=== PATIENT | female | born 1960 | race Caucasian/White ===

== ENCOUNTER 2016-12-12 19:08 | Inpatient (IN) | payer MEDICAID ==
[~2016-12-12] VITALS: Ht 157.5 cm; Wt 85.0 kg
[2016-12-12 19:10] VITALS: BP 130/64; PULSE 128; RESP 16; TEMP 103.1; O2SAT 96
[2016-12-12] MEDS ORDERED: PIPERACIL-TAZO 4.5 GM PREMIX 100 ML IV STA (21:21)
[2016-12-12] MEDS ORDERED: VANCOMYCIN INJ 1,000 MG in SODIUM CHLOR 0.9% 250 ML INJ 250 ML IV STA (21:21)
[2016-12-12] MEDS ORDERED: SODIUM CHLOR 0.9% 1000 ML INJ 1,000 ML IV ONE ×2 (21:21)
[2016-12-12] MEDS ORDERED: SODIUM CHLOR 0.9% 1000 ML INJ 400 ML IV ONE (21:21)
--- NOTE | 2016-12-12 21:29 | PD ---
HPI Chief Complaint: Skin Problem Time Seen by Provider: 21:21 Travel History International Travel<30 days: No Contact w/Intl Traveler<30days: No Traveled to known affect area: No History of Present Illness HPI Patient comes in complaining of fever and possible infected wound of her right breast. Patient reports she has surgery back in September in [facility] for cancer. Patient reports she had bilateral mastectomy. Patient she's had a wound ever since. Patient reports she has spacers in her breast. Patient states wounds have not close. Patient states she started having fevers earlier today of 104 home. Patient has not been on any chemotherapy or radiation therapy. Patient states she saw her surgeon prior to coming to [place] and was told everything was fine. Patient states she's been having a intermittent spasming pain right side of her chest without radiation. Patient states this comes and goes. Denies anything making it better or worse. Patient states she did take ibuprofen for the fever last dose around 6 PM tonight. Patient denies any chest pain, shortness of breath, headache, back or abdominal pain, loss change in bowel or bladder. Patient reports she is on Cymbalta and unknown cholesterol med. Patient states today when she sat on the toilet the wound started just draining large amount purulent drainage from her right breast. PFSH Past Medical History Cancer: Yes (BREAST CANCER) COPD: Yes (& EMPHYSEMA) Diminished Hearing: No ?: Not Tubal Ligation: Yes (1990) Past Surgical History Cholecystectomy: Yes (2013) Other Surgery: Yes (BILAT MASTECTOMY WITH SPACERS) Social History Alcohol Use: Yes ([facility]) Tobacco Use: No (USES [employer] NOW) Substance Use: No Allergies-Medications (Allergen,Severity, Reaction): Coded Allergies: No Known Allergies (Unverified , 12/12/16) Reported Meds & Prescriptions Reported Meds & Active Scripts Active Reported Cymbalta DR (Duloxetine HCl) 60 Mg Capdr 60 Mg PO DAILY Review of Systems Except as stated in HPI: all other systems reviewed are Neg Physical Exam Narrative GENERAL: Well-developed, overly nourished, in no acute distress, and non-ill appearing. SKIN: Large open wound noted right breast and goes up to the areola. There is no drainage currently. Patient's second small wound laterally and inferiorly to this. They both nontender and without crepitus. They are febrile with erythematous noted on the inferior aspect of the right breast. Patient has a healing wound noted left breast is afebrile, nontender, and without drainage or crepitus. HEAD: Atraumatic. Normocephalic. EYES: Pupils equal and round. EOMI. No scleral icterus. No injection or drainage. ENT: No nasal bleeding or discharge. Mucous membranes pink and moist. NECK: Trachea midline. Supple. No nuclear rigidity. CARDIOVASCULAR: Tachycardia rate and rhythm. No murmur appreciated. RESPIRATORY: No accessory muscle use. No respiratory distress. Clear to auscultation. Breath sounds equal bilaterally. GASTROINTESTINAL: Abdomen soft, non-tender, nondistended, and no guarding. Hepatic and splenic margins not palpable. No pulsatile mass. MUSCULOSKELETAL: No obvious deformities. No clubbing. No cyanosis. No edema. Full range of motion. NEUROLOGICAL: Awake and alert. No obvious cranial nerve deficits. Motor grossly within normal limits. Normal speech. PSYCHIATRIC: Appropriate mood and affect; insight and judgment normal. Data Data Last Documented VS Vital Signs Date Time Temp Pulse Resp B/P (MAP) Pulse Ox O2 Delivery O2 Flow Rate FiO2 12/12/16 23:00 99.6 12/12/16 21:38 113 20 99 Room Air Orders Orders Electrocardiogram (12/12/16 21:21) Complete Blood Count With Diff (12/12/16 21:21) Comprehensive Metabolic Panel (12/12/16 21:21) Prothrombin Time / Inr (Pt) (12/12/16 21:21) Act Partial Throm Time (Ptt) (12/12/16 21:21) Lactic Acid Sepsis Protocol (12/12/16 21:21) Magnesium (Mg) (12/12/16 21:21) Urinalysis - C+S If Indicated (12/12/16 21:21) Blood Culture (12/12/16 21:21) Chest, Single Ap (12/12/16 21:21) Blood Glucose (12/12/16 21:21) Ecg Monitoring (12/12/16 21:21) Iv Access Insert/Monitor (12/12/16 21:21) Oximetry (12/12/16 21:21) Oxygen Administration (12/12/16 21:21) Acetaminophen (Tylenol) (12/12/16 21:30) Piperacil-Tazo 4.5 Gm Premix (Zosyn 4.5 (12/12/16 21:21) Vancomycin Inj (Vancomycin Inj) (12/12/16 21:21) Sodium Chlor 0.9% 1000 Ml Inj (Ns 1000 M (12/12/16 21:21) Sodium Chlor 0.9% 1000 Ml Inj (Ns 1000 M (12/12/16 21:21) Sodium Chlor 0.9% 1000 Ml Inj (Ns 1000 M (12/12/16 21:21) Wound Culture And Gram Stain (12/12/16 22:01) Potassium Chloride (Kcl) (12/12/16 22:30) Admit Order (Ed Use Only) (12/12/16 23:11) Labs Laboratory Tests Test 12/12/16 21:25 12/12/16 21:30 White Blood Count 13.1 TH/MM3 Red Blood Count 4.25 MIL/MM3 Hemoglobin 11.9 GM/DL Hematocrit 35.8 % Mean Corpuscular Volume 84.3 FL Mean Corpuscular Hemoglobin 28.1 PG Mean Corpuscular Hemoglobin Concent 33.3 % Red Cell Distribution Width 13.2 % Platelet Count 216 TH/MM3 Mean Platelet Volume 8.3 FL Neutrophils (%) (Auto) 84.8 % Lymphocytes (%) (Auto) 9.7 % Monocytes (%) (Auto) 4.9 % Eosinophils (%) (Auto) 0.3 % Basophils (%) (Auto) 0.3 % Neutrophils # (Auto) 11.1 TH/MM3 Lymphocytes # (Auto) 1.3 TH/MM3 Monocytes # (Auto) 0.6 TH/MM3 Eosinophils # (Auto) 0.0 TH/MM3 Basophils # (Auto) 0.0 TH/MM3 CBC Comment DIFF FINAL Differential Comment Prothrombin Time 10.6 SEC Prothromb Time International Ratio 1.0 RATIO Activated Partial Thromboplast Time 25.4 SEC Blood Urea Nitrogen 9 MG/DL Creatinine 1.03 MG/DL Random Glucose 90 MG/DL Total Protein 6.9 GM/DL Albumin 3.7 GM/DL Calcium Level 9.2 MG/DL Magnesium Level 1.7 MG/DL Alkaline Phosphatase 75 U/L Aspartate Amino Transf (AST/SGOT) 41 U/L Alanine Aminotransferase (ALT/SGPT) 37 U/L Total Bilirubin 0.5 MG/DL Sodium Level 139 MEQ/L Potassium Level 3.3 MEQ/L Chloride Level 105 MEQ/L Carbon Dioxide Level 23.9 MEQ/L Anion Gap 10 MEQ/L Estimat Glomerular Filtration Rate 56 ML/MIN Lactic Acid Level 1.6 mmol/L Urine Color LIGHT-YELLOW Urine Turbidity CLEAR Urine pH 5.5 Urine Specific [place] 1.005 Urine Protein NEG mg/dL Urine Glucose (UA) NEG mg/dL Urine Ketones NEG mg/dL Urine Occult Blood NEG Urine Nitrite NEG Urine Bilirubin NEG Urine Urobilinogen LESS THAN 2.0 MG/DL Urine Leukocyte Esterase NEG Urine RBC LESS THAN 1 /hpf Urine WBC LESS THAN 1 /hpf Urine Squamous Epithelial Cells <1 /hpf Microscopic Urinalysis Comment CATH-CULT NOT IND MDM Medical Decision Making Medical Screen Exam Complete: Yes Emergency Medical Condition: Yes Interpretation(s) EKG reviewed by Dr. Coronado shows sinus tachycardia with a ventricular rate of 104. No STEMI. Differential Diagnosis Sepsis, wound infection, pneumonia, UTI, electrolyte abnormality, other Narrative Course Patient was seen and examined. Initial laboratory and radiological studies were ordered. IV was established and patient was placed on continuous cardiac monitoring. Patient was given 3 L IV fluid started on IV Zosyn, and IV vancomycin. Discussed all findings and plan of care with patient, who is agreeable for admission. All questions were answered Discussed patient with Dr. Coronado, who is in agreement with plan of care and disposition. This patient with hospitalist who is agreeable to admit the patient. Sepsis Criteria SIRS Criteria (2 or more): Temp > 100.9 or < 96.8, Heart rate over 90, WBC > 50847, < 4000 or > 10% bands Sepsis Criteria (SIRS+source): Infect source susp/known Physician Communication Physician Communication [id number] Waller, who is agreeable to admit the patient. Diagnosis Primary Impression: Sepsis Qualified Codes: A41.9 - Sepsis, unspecified organism Additional Impression: Wound infection Admitting Information Admitting Physician Requests: Admit Condition: Stable Syed Santana Dec 12, 2016 21:29
[2016-12-12] MEDS ORDERED: CYMB60CA PO (21:30)
[2016-12-12] MEDS ORDERED: ACETAMINOPHEN 325 MG TAB PO ONE (21:30)
[2016-12-12 21:38] VITALS: BP 119/69; PULSE 113; RESP 20; TEMP 101.9; O2SAT 99
[2016-12-12 21:47] LABS: AUTOMATED NEUTROPHIL # 11.1 TH/MM3 (1.8-7.7); BASOPHIL % 0.3 % (0.0-2.0); EOSINOPHIL % 0.3 % (0.0-4.0); HEMATOCRIT 35.8 % (35.0-46.0); HEMO FLAGS DIFF FINAL; LYMPH % 9.7 % (9.0-44.0); LYMPHOCYTE # 1.3 TH/MM3 (1.0-4.8); MEAN CELL VOLUME 84.3 FL (80.0-100.0); MEAN CORPUSCULAR HEMOGLOBIN 28.1 PG (27.0-34.0); MEAN CORPUSCULAR HGB CONC 33.3 % (32.0-36.0); MONO % 4.9 % (0.0-8.0); NEUT % 84.8 % (16.0-70.0); PLATELET COUNT 216 TH/MM3 (150-450); RED BLOOD COUNT 4.25 MIL/MM3 (4.00-5.30); RED CELL DISTRIBUTION WIDTH 13.2 % (11.6-17.2); WHITE BLOOD COUNT 13.1 TH/MM3 (4.0-11.0)
--- NOTE | 2016-12-12 21:51 | RADRPT ---
EXAM DATE/TIME: 12/12/2016 21:34 [place] COMPARISON: No previous studies available for comparison. INDICATIONS : Fever. MEDICAL HISTORY : Carcinoma, breast. SURGICAL HISTORY : Mastectomy, bilateral. ENCOUNTER: Initial ACUITY: 1 week PAIN SCORE: 0/10 LOCATION: Bilateral chest FINDINGS: A single view of the chest demonstrates the lungs to be symmetrically aerated without evidence of mas s, infiltrate or effusion. The cardiomediastinal contours are unremarkable. Osseous structures are intact. CONCLUSION: No acute disease. Abner Villagomez MD on December 12, 2016 at 21:49 Board Certified Radiologist. This report was verified electronically.
[2016-12-12 21:54] LABS: BLOOD, URINE NEG (NEG); GLUCOSE,URINE NEG (NEG); KETONE, URINE NEG (NEG); NITRITE,URINE NEG (NEG); PH, URINE 5.5 (5.0-8.5); SQUAMOUS EPITHELIAL CELL URINE <1 /hpf (0-5); URINE COLOR LIGHT-YELLOW (YELLW/STRAW)
[2016-12-12 21:56] LABS: COMMENT (UR) CATH-CULT NOT IND; CULTURE IF INDICATED CATH CULTURE NOT IND
[2016-12-12 21:57] LABS: APTT (PATIENT) 25.4 SEC (24.3-30.1); PROTHROMBIN TIME - PATIENT 10.6 SEC (9.8-11.6)
[2016-12-12 22:06] LABS: ANION GAP 10 MEQ/L (5-15); AST (GOT) 41 U/L (15-37); BICARBONATE 23.9 MEQ/L (21.0-32.0); BLOOD UREA NITROGEN 9 MG/DL (7-18); CHLORIDE 105 MEQ/L (98-107); GLOMERULAR FILTRATION RATE 56 ML/MIN (>89); MAGNESIUM 1.7 MG/DL (1.5-2.5); POTASSIUM 3.3 MEQ/L (3.5-5.1); SODIUM (NA) 139 MEQ/L (136-145)
[2016-12-12 22:12] LABS: ALKALINE PHOSPHATASE 75 U/L (45-117); ALT (GPT) 37 U/L (10-53); TOTAL BILIRUBIN ADULT 0.5 MG/DL (0.2-1.0)
[2016-12-12] MEDS ORDERED: POTASSIUM CHLORIDE 20 MEQ CONTROLLED RELEASE TAB PO ONE (22:30)
[2016-12-12 23:00] VITALS: TEMP 99.6
[2016-12-12] MEDS ORDERED: SODIUM CHLORIDE 0.9% FLUSH 10 ML FLUSH IV FLUSH PRN (23:30)
[2016-12-12] MEDS ORDERED: Vancomycin Consult Pharmacy 1 EA OTHER SCH (23:30)
[2016-12-12] MEDS ORDERED: NALOXONE HCL 0.4 MG/ML AMP IV PUSH PRN (23:30)
[2016-12-13] VITALS (11 sets, daily range): BP systolic 89–111; BP diastolic 53–72; PULSE 86–107; RESP 16–22; TEMP 98.7–102.8; O2SAT 94–98
--- NOTE | 2016-12-13 03:27 | HHI.HP ---
HPI Service [facility] Primary Care Physician Unknown Admission Diagnosis sepsis, wound infection Diagnoses: (1) Sepsis (2) Wound infection Chief Complaint: Right breast wound with excessive drainage Travel History International Travel<30 Days: No Contact w/Intl Traveler <30 Da: No Traveled to Known Affected Are: No History of Present Illness Written by Sarai Moralez, acting as scribe for Dr. Waller on 12/13/16 at 03:27. Plastic surgery following bilateral mastectomy 2 months ago (October 03, 2016) She has had a hole there on right breast/open wound for 7 weeks - had green, foul-odored drainage - plastic surgeon was notified multiple time and patient states she was told that it was "all fine"; wound got bigger and bigger; she was placed on antibiotics for it Patient was sitting on the toilet this morning and fluid started "pouring out of it" - discharge was "orangy" colored Has been off antibiotics for about 6 weeks Reports nausea with vomiting since arriving here at the hospital Denies fevers, shortness of breath, chest pain, vomiting, diarrhea, black or red stool, frequent urination. Traveled by plane here last Saturday; no unilateral extremity swelling or shortness of breath. Due to return home on Saturday. . Review of Systems Except as stated in HPI: all other systems reviewed are Neg Past Family Social History Past Medical History Breast cancer Hyperlipidemia Thyroid nodules Denies hypertension, diabetes, CAD, CHF, valvular heart disease, asthma, breathing problems, liver problems, kidney problems, DVT, PE, CVA, seizures. . Past Surgical History Breast spacer placement bilaterally with bilateral mastectomy Reported Medications Reported Meds & Active Scripts Active Reported Cymbalta DR (Duloxetine HCl) 60 Mg Capdr 60 Mg PO DAILY . Allergies: Coded Allergies: No Known Allergies (Unverified , 12/12/16) Active Ordered Medications Current Medications Acetaminophen (Tylenol) 650 mg ONCE ONCE PO Last administered on 12/12/16t 21 :38; Start 12/12/16 at 21:30; Stop 12/12/16 at 21:31; Status DC Piperacillin Sod/ Tazobactam Sod 100 ml @ 200 mls/hr ONCE STAT IV Last administered on 12/12/16 21:38; Start 12/12/16 at 21:21; Stop 12/12/16 at 21 :50; Status DC Vancomycin HCl 1000 mg/Sodium Chloride 250 ml @ 250 mls/hr ONCE STAT IV Last administered on 12/12/16 22:57; Start 12/12/16 at 21:21; Stop 12/12/16 at 22 :20; Status DC Sodium Chloride 1,000 ml @ 1,000 mls/hr Q1H ONCE IV Last administered on 12/12 21:37; Start 12/12/16 at 21:21; Stop 12/12/16 at 22:20; Status DC Sodium Chloride 1,000 ml @ 1,000 mls/hr Q1H ONCE IV Last administered on 12/12 21:38; Start 12/12/16 at 21:21; Stop 12/12/16 at 22:20; Status DC Sodium Chloride 400 ml @ 1,000 mls/hr Q24M ONCE IV Last administered on 21:38; Start 12/12/16 at 21:21; Stop 12/12/16 at 21:44; Status DC Potassium Chloride (KCl) 40 meq ONCE ONCE PO Last administered on 12/12/16 22:58; Start 12/12/16 at 22:30; Stop 12/12/16 at 22:31; Status DC Sodium Chloride (NS Flush) 2 ml UNSCH PRN IV FLUSH FLUSH AFTER USING IV ACCESS ; Start 12/12/16 at 23:30 Sodium Chloride (NS Flush) 2 ml BID IV FLUSH ; Start 12/13/16 at 09:00 Naloxone HCl (Narcan Inj) 0.4 mg UNSCH PRN IV PUSH SEE LABEL COMMENTS; Start 12/12/16 at 23:30 Pharmacy Profile Note 0 ml @ 0 mls/hr UNSCH OTHER ; Start 12/12/16 at 23:30 Piperacillin Sod/ Tazobactam Sod 100 ml @ 200 mls/hr Q6H IV ; Start 12/13/16 at 05:00 . Family History Mother with lung cancer Father with Alzheimer's, renal cell CA, and basal cell CA Niece with breast cancer . Social History Tobacco: quit smoking one year ago; uses e cigarette on occasion Alcohol: rare Illicit Drugs: denies . Physical Exam Vital Signs Vital Signs Date Time Temp Pulse Resp B/P (MAP) Pulse Ox O2 Delivery O2 Flow Rate FiO2 12/13/16 00:52 98.7 88 18 89/53 (65) 97 12/13/16 00:23 12/12/16 23:00 99.6 12/12/16 21:38 101.9 113 20 119/69 (86) 99 Room Air 12/12/16 21:38 99 Room Air 12/12/16 21:32 113 20 12/12/16 19:10 103.1 128 16 130/64 (86) 96 Room Air Physical Exam GENERAL: This is a female patient, in no apparent distress. SKIN: No rashes. Cool and dry. Left breast with healing scar inferior to nipple line with some wound separation and pink central area without exudate. Right breast wound covered with dressing. HEAD: Atraumatic. Normocephalic. EYES: No scleral icterus. No injection or drainage. ENT: Nose without bleeding, purulent drainage. NECK: Trachea midline. No JVD or lymphadenopathy. Supple, nontender, no meningeal signs. CARDIOVASCULAR: Regular rate and rhythm without murmurs, gallops, or rubs. RESPIRATORY: Clear to auscultation. Breath sounds equal bilaterally. No wheezes , rales, or rhonchi. GASTROINTESTINAL: Abdomen soft, non-tender, nondistended. No hepato-splenomegaly , or palpable masses. No guarding. MUSCULOSKELETAL: Extremities without clubbing, cyanosis, or edema. No calf tenderness. NEUROLOGICAL: Awake and alert. Motor and sensory grossly within normal limits. Normal speech. . Laboratory Laboratory Tests Test 12/12/16 21:25 12/12/16 21:30 White Blood Count 13.1 Red Blood Count 4.25 Hemoglobin 11.9 Hematocrit 35.8 Mean Corpuscular Volume 84.3 Mean Corpuscular Hemoglobin 28.1 Mean Corpuscular Hemoglobin Concent 33.3 Red Cell Distribution Width 13.2 Platelet Count 216 Mean Platelet Volume 8.3 Neutrophils (%) (Auto) 84.8 Lymphocytes (%) (Auto) 9.7 Monocytes (%) (Auto) 4.9 Eosinophils (%) (Auto) 0.3 Basophils (%) (Auto) 0.3 Neutrophils # (Auto) 11.1 Lymphocytes # (Auto) 1.3 Monocytes # (Auto) 0.6 Eosinophils # (Auto) 0.0 Basophils # (Auto) 0.0 CBC Comment DIFF FINAL Differential Comment Prothrombin Time 10.6 Prothromb Time International Ratio 1.0 Activated Partial Thromboplast Time 25.4 Blood Urea Nitrogen 9 Creatinine 1.03 Random Glucose 90 Total Protein 6.9 Albumin 3.7 Calcium Level 9.2 Magnesium Level 1.7 Alkaline Phosphatase 75 Aspartate Amino Transf (AST/SGOT) 41 Alanine Aminotransferase (ALT/SGPT) 37 Total Bilirubin 0.5 Sodium Level 139 Potassium Level 3.3 Chloride Level 105 Carbon Dioxide Level 23.9 Anion Gap 10 Estimat Glomerular Filtration Rate 56 Lactic Acid Level 1.6 Urine Color LIGHT-YELLOW Urine Turbidity CLEAR Urine pH 5.5 Urine Specific [place] 1.005 Urine Protein NEG Urine Glucose (UA) NEG Urine Ketones NEG Urine Occult Blood NEG Urine Nitrite NEG Urine Bilirubin NEG Urine Urobilinogen LESS THAN 2.0 Urine Leukocyte Esterase NEG Urine RBC LESS THAN 1 Urine WBC LESS THAN 1 Urine Squamous Epithelial Cells <1 Microscopic Urinalysis Comment CATH-CULT NOT IND Date/Time Source Procedure Growth Status 12/12/16 21:25 Blood Peripheral Aerobic Blood Culture Pending Received 12/12/16 21:25 Blood Peripheral Anaerobic Blood Culture Pending Received 12/12/16 22:10 Wound Breast Gram Stain Pending Received 12/12/16 22:10 Wound Breast Wound Culture Pending Received Result Diagram: 12/12/[id number] Imaging Last Impressions Chest X-Ray 12/12/162120 Signed Impressions: Service Date/Time: Monday, December 12, 2016 21:34 - CONCLUSION: No acute disease. Abner Villagomez MD . Caprini VTE Risk Assessment Caprini VTE Risk Assessment: Mod/High Risk (score >= 2) Caprini Risk Assessment Model Point Value = 1 Point Value = 2 Point Value = 3 Point Value = 5 Age 41-60 Minor surgery BMI > 25 kg/m2 Swollen legs Varicose veins or History of unexplained or recurrent spontaneous Oral contraceptives or hormone replacement Sepsis (< 1 month) Serious lung disease, including pneumonia (< 1 month) Abnormal pulmonary function Acute myocardial infarction Congestive heart failure (< 1 month) History of inflammatory bowel disease Medical patient at bed rest Age 61-74 Arthroscopic surgery Major open surgery (> 45 min) Laparoscopic surgery (> 45 min) Malignancy Confined to bed (> 72 hours) Immobilizing plaster cast Central venous access Age >= 75 History of VTE Family history of VTE Factor V Leiden Prothrombin [id number] Lupus anticoagulant Anticardiolipin antibodies Elevated serum homocysteine Heparin-induced thrombocytopenia Other congenital or acquired thrombophilia Stroke (< 1 month) Elective arthroplasty Hip, pelvis, or leg fracture Acute spinal cord injury (< 1 month) Prophylaxis Regimen Total Risk Factor Score Risk Level Prophylaxis Regimen 0-1 Low Early ambulation 2 Moderate Order ONE of the following: *Sequential Compression Device (SCD) *Heparin 5000 units SQ BID 3-4 Higher Order ONE of the following medications: *Heparin 5000 units SQ TID *Enoxaparin/Lovenox 40 mg SQ daily (WT < 150 kg, CrCl > 30 mL/min) *Enoxaparin/Lovenox 30 mg SQ daily (WT < 150 kg, CrCl > 10-29 mL/min) *Enoxaparin/Lovenox 30 mg SQ BID (WT < 150 kg, CrCl > 30 mL/min) AND/OR *Sequential Compression Device (SCD) 5 or more Highest Order ONE of the following medications: *Heparin 5000 units SQ TID (Preferred with Epidurals) *Enoxaparin/Lovenox 40 mg SQ daily (WT < 150 kg, CrCl > 30 mL/min) *Enoxaparin/Lovenox 30 mg SQ daily (WT < 150 kg, CrCl > 10-29 mL/min) *Enoxaparin/Lovenox 30 mg SQ BID (WT < 150 kg, CrCl > 30 mL/min) AND *Sequential Compression Device (SCD) Assessment and Plan Problem List: (1) Wound infection ICD Code: T14.8XXA - Other injury of unspecified body region, initial encounter ; L08.9 - Local infection of the skin and subcutaneous tissue, unspecified Status: Acute (2) Sepsis ICD Code: A41.9 - Sepsis, unspecified organism Status: Acute Assessment and Plan 56 y/o with bilateral mastectomy and breast spacer placement surgery for breast cancer 2 months ago who presented to ED on 12/12/16 for evaluation of extensively draining non-healing right breast wound. Sepsis Right breast wound infection - Fever - temp 103.1 on admission, WBC 13.1 with neutrophilia, tachycardia - meets sepsis criteria - Lactic acid normal at 1.6 - Antibiotics: Zosyn 4.5 grams IV q6h; Vancomycin with pharmacy consult for therapeutic monitoring and dosing - consult infectious disease - patient has breast spacers - please indicate whether these should be removed - appreciate assistance - multiple fluid boluses in ED to total 2400 ccs of NS IV Hypokalemia - potassium replaced - initial level 3.3 - recheck BMP - recheck potassium levels as indicated Depression - resume home Cymbalta - verbally ordered DVT prophylaxis - Lovenox 40 mg subq q24h - verbally ordered This note was transcribed by delvis [Sarai Moralez]. I, Dr. Naomie Waller personally performed the history, physical exam, and medical decision making; and confirmed the accuracy of the information in the transcribed note. Authenticated by Dr. Naomie Waller on 12/13/16 at 03:27. Discussed Condition With ER physician, patient, RN . Physician Certification 2 Midnight Certification Type: Admission for Inpatient Services Order for Inpatient Services The services are ordered in accordance with Medicare regulations or non- Medicare payer requirements, as applicable. In the case of services not specified as inpatient-only, they are appropriately provided as inpatient services in accordance with the 2-midnight benchmark. Estimated LOS (days): 3 days is the estimated time the patient will need to remain in the hospital, assuming treatment plan goals are met and no additional complications. Post-Hospital Plan: Home Problem Qualifiers (1) Sepsis: Qualified Codes: A41.9 - Sepsis, unspecified organism Sarai Moralez Dec 13, 2016 03:27 Naomie Waller MD Dec 14, 2016 04:58
[2016-12-13] MEDS: PIPERACIL-TAZO 4.5 GM PREMIX 100 ML IV SCH ×3 (06:30→17:20)
[2016-12-13 09:09] LABS: AUTOMATED NEUTROPHIL # 18.2 TH/MM3 (1.8-7.7); BASOPHIL % 0.1 % (0.0-2.0); EOSINOPHIL % 0.2 % (0.0-4.0); LYMPH % 5.6 % (9.0-44.0); LYMPHOCYTE # 1.2 TH/MM3 (1.0-4.8); MEAN CELL VOLUME 86.4 FL (80.0-100.0); MEAN CORPUSCULAR HEMOGLOBIN 28.4 PG (27.0-34.0); MEAN CORPUSCULAR HGB CONC 32.9 % (32.0-36.0); MONO % 5.7 % (0.0-8.0); NEUT % 88.4 % (16.0-70.0); PLATELET COUNT 193 TH/MM3 (150-450); RED BLOOD COUNT 4.05 MIL/MM3 (4.00-5.30); RED CELL DISTRIBUTION WIDTH 13.5 % (11.6-17.2); WHITE BLOOD COUNT 20.5 TH/MM3 (4.0-11.0)
[2016-12-13 09:15] LABS: HEMO FLAGS AUTO DIFF
[2016-12-13] MEDS: DULoxetine HCl DR 60 MG CAP PO SCH (09:16)
[2016-12-13] MEDS: ENOXAPARIN SODIUM 40 MG/0.4 ML SYRINGE SQ SCH (09:16)
[2016-12-13] MEDS: SODIUM CHLORIDE 0.9% FLUSH 10 ML FLUSH IV FLUSH SCH ×2 (09:16→21:00)
[2016-12-13 09:27] LABS: BICARBONATE 22.1 MEQ/L (21.0-32.0); POTASSIUM 3.6 MEQ/L (3.5-5.1)
[2016-12-13 09:49] LABS: BANDS 11 % (0-6); NEUTROPHIL # MANUAL DIFF 18.5 TH/MM3 (1.8-7.7); PLATELET ESTIMATE SMEAR NORMAL (NORMAL); PLATELET MORPHOLOGY NORMAL (NORMAL); POLYS (SEG NEUTROPHILS) 79 % (16-70); SCAN/DIFF FINAL DIFF MANUAL; WBC DIFF SAMPLE 100
[2016-12-13] MEDS ORDERED: VANCOMYCIN INJ 1,250 MG in SODIUM CHLOR 0.9% 250 ML INJ 250 ML IV SCH (10:00)
[2016-12-13] MEDS ORDERED: MAGNESIUM HYDROXIDE SUSP 30 ML CUP PO PRN (11:00)
[2016-12-13] MEDS ORDERED: LACTULOSE SYRUP 20 GM/30 ML CUP PO PRN (11:00)
[2016-12-13] MEDS ORDERED: ONDANSETRON HCL 4 MG/2 ML VIAL IV PUSH ONE (12:00)
[2016-12-13] MEDS ORDERED: PROPOFOL 200 MG/20 ML AMP IV ONE (12:00)
[2016-12-13] MEDS ORDERED: ROCURONIUM INJ 50 MG/5 ML SYRINGE IV PUSH ONE (12:00)
[2016-12-13] MEDS ORDERED: DEXAMETHASONE SOD PHOS 4 MG/ML VIAL IV ONE (12:00)
[2016-12-13] MEDS ORDERED: SUCCINYLCHOLINE CHLORIDE 100 MG/5 ML SYRINGE IV PUSH ONE (12:00)
[2016-12-13] MEDS ORDERED: LACTATED RINGER'S 1000 ML INJ 1,000 ML IV ONE (12:00)
[2016-12-13] MEDS ORDERED: LIDOCAINE HCL 1% PF 5 ML AMPULE OTHER ONE (12:00)
--- NOTE | 2016-12-13 13:55 | PD.WCN.NOT ---
Wound Consult Description: Consult received from Doctor Cox for R breast wound management/ infection Communicated with: LEIDY Smith Recommendation: Please continue with moist to dry dressings per Doctor Roland order until seen by General Surgery for possible debridement Additional Information: Patient seen on for evaluation of R breast wound management/ infection. Removed Elastoplast tape and ABD pad in place to reveal full thickness wounds to R breast The larger wound measures 3cm x 7cm x slough. Smaller wound to R breast measures ~1cm x~2.3 cm x ~0.2cm. Large wound bed presents with ~70% red granulated tissue, 10 % white tissue and ~20% yellow loosely adherent slough. Undermining is noted from 11 to 1 o'clock deepest at 1 o'clock measuring ~<8cm. Wound started to drain heavily during undermining assessment yellow/pink, cloudy drainage with a foul odor.Periwound presents with mild erythema,and induration from 3 to 5 o'clock and then from 7 to 9 o'clock. Loosely packed wound and and undermined area with moist 4x4 gauze pad, covered with dry 4x4 gauze pad and covered with ABD pad, Secured dressing with 2 pieces of 1 inch paper tape. Skin prep sprayed to skin before applying tape. Smaller wound bed to R breast presents with ~80% red non granulation tissue ~20 % white tissue. Periwound presents with induration from 2 to 4 o'clock , Wound has minimal sero-sanguinous drainage with mild odor. Cleansed wound with normal saline and applied saline moistened 2x2 gauze pad over wound bed and secured with ABD pad and 2 pieces of paper tape. Please continue dressing changes as ordered. Patient needs to be evaluated by General surgery for possible debridement .Patient tolerated dressing change procedure well. Holly De La Vega [facility] Dec 13, 2016 13:55
[2016-12-13] MEDS ORDERED: ACETAMINOPHEN 500 MG CPLT PO PRN (17:00)
--- NOTE | 2016-12-13 18:46 | PD.ID.CON ---
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 Unknown Diagnoses: History of Present Illness 56 yo F with R breast ca sp b/l mastectomy with expanders placement, no radiation in September L breast healed, R breast with a persistent draining wound below the nipple (6 o 'clock) presented to her plastim surgeon office with above complain , was told she is fine She cam e [place] from [place] and presented to [place] with worsening drainage , pain and redness of the R breast She hnow has fever up to 102.8; her WBC is getting worse up to 20 K with 11% of bands and her breast clx is + for MSSA Review of Systems Except as stated in HPI: all other systems reviewed are Neg Past Family Social History Allergies: Coded Allergies: No Known Allergies (Unverified , 12/12/16) Active Ordered Medications Medications where reviewed in EMR Antibiotics Include: pip tazo vancomycinm Physical Exam Vital Signs Vital Signs Date Time Temp Pulse Resp B/P (MAP) Pulse Ox O2 Delivery O2 Flow Rate FiO2 12/13/16 16:00 102.3 107 21 111/55 (73) 94 12/13/16 12:00 102.8 105 22 104/59 (74) 96 12/13/16 10:06 99.5 98 20 99/56 (70) 98 12/13/16 09:31 96 12/13/16 06:35 108/72 (84) 12/13/16 01:30 94 12/13/16 01:00 102/58 (73) 12/13/16 00:52 98.7 88 18 89/53 (65) 97 12/13/16 00:23 12/12/16 23:00 99.6 12/12/16 21:38 101.9 113 20 119/69 (86) 99 Room Air 12/12/16 21:38 99 Room Air 12/12/16 21:32 113 20 12/12/16 19:10 103.1 128 16 130/64 (86) 96 Room Air Physical Exam CONSTITUTIONAL/GENERAL: This is an adequately nourished patient, in no apparent distress. TUBES/LINES/DRAINS: SKIN: No jaundice, rashes, or lesions. Skin temperature appropriate. Not diaphoretic. BREASTS: L breast with nearly completely healed incisions, no edema, no ertyehema no tenderness R breast with open wound with small amount of serous drainage below the nipple + substantial edema, + ertyehema extending to the LOQ and axillae area with prominent tenderness HEAD: Atraumatic. Normocephalic. EYES: Pupils equal and round and reactive. Extraocular motions intact. No scleral icterus. No injection or drainage. Fundi not examined. ENT: Hearing grossly normal. Nose without bleeding or purulent drainage. Oral mucosae without visible erythema, exudates, masses, or lesions. NECK: Trachea midline. Supple, nontender. CARDIOVASCULAR: Regular rate and rhythm without murmurs, gallops, or rubs. No JVD. Peripheral pulses symmetric. RESPIRATORY/CHEST: Symmetric, unlabored respirations. Clear to auscultation. Breath sounds equal bilaterally. No wheezes, rales, or rhonchi. GASTROINTESTINAL: Abdomen soft, non-tender, nondistended. No hepato-splenomegaly , or palpable masses. No guarding. Bowel sounds present. GENITOURINARY: Without palpable bladder distension. MUSCULOSKELETAL: Extremities without clubbing, cyanosis, or edema. No joint tenderness or effusion noted. No calf tenderness. No mottling or clubbing. LYMPHATICS: No palpable cervical or supraclavicular adenopathy. NEUROLOGICAL: Awake and alert. Motor and sensory grossly within normal limits. Follows commands. Clear speech. Moves all extremities. PSYCHIATRIC: No obvious anxiety/depression. no apparent hallucinations or other psychotic thought process. Laboratory Laboratory Tests Test 12/12/16 21:25 12/12/16 21:30 12/13/16 07:35 White Blood Count 13.1 20.5 Red Blood Count 4.25 4.05 Hemoglobin 11.9 11.5 Hematocrit 35.8 35.0 Mean Corpuscular Volume 84.3 86.4 Mean Corpuscular Hemoglobin 28.1 28.4 Mean Corpuscular Hemoglobin Concent 33.3 32.9 Red Cell Distribution Width 13.2 13.5 Platelet Count 216 193 Mean Platelet Volume 8.3 8.6 Neutrophils (%) (Auto) 84.8 88.4 Lymphocytes (%) (Auto) 9.7 5.6 Monocytes (%) (Auto) 4.9 5.7 Eosinophils (%) (Auto) 0.3 0.2 Basophils (%) (Auto) 0.3 0.1 Neutrophils # (Auto) 11.1 18.2 Lymphocytes # (Auto) 1.3 1.2 Monocytes # (Auto) 0.6 1.2 Eosinophils # (Auto) 0.0 0.0 Basophils # (Auto) 0.0 0.0 CBC Comment DIFF FINAL AUTO DIFF Differential Comment FINAL DIFF MANUAL Prothrombin Time 10.6 Prothromb Time International Ratio 1.0 Activated Partial Thromboplast Time 25.4 Blood Urea Nitrogen 9 10 Creatinine 1.03 0.86 Random Glucose 90 99 Total Protein 6.9 Albumin 3.7 Calcium Level 9.2 8.3 Magnesium Level 1.7 Alkaline Phosphatase 75 Aspartate Amino Transf (AST/SGOT) 41 Alanine Aminotransferase (ALT/SGPT) 37 Total Bilirubin 0.5 Sodium Level 139 139 Potassium Level 3.3 3.6 Chloride Level 105 109 Carbon Dioxide Level 23.9 22.1 Anion Gap 10 8 Estimat Glomerular Filtration Rate 56 69 Lactic Acid Level 1.6 Urine Color LIGHT-YELLOW Urine Turbidity CLEAR Urine pH 5.5 Urine Specific [place] 1.005 Urine Protein NEG Urine Glucose (UA) NEG Urine Ketones NEG Urine Occult Blood NEG Urine Nitrite NEG Urine Bilirubin NEG Urine Urobilinogen LESS THAN 2.0 Urine Leukocyte Esterase NEG Urine RBC LESS THAN 1 Urine WBC LESS THAN 1 Urine Squamous Epithelial Cells <1 Microscopic Urinalysis Comment CATH-CULT NOT IND Differential Total Cells Counted 100 Neutrophils % (Manual) 79 Band Neutrophils % 11 Lymphocytes % 6 Monocytes % 4 Neutrophils # (Manual) 18.5 Platelet Estimate NORMAL Platelet Morphology Comment NORMAL Red Cell Morphology Comment NORMAL Date/Time Source Procedure Growth Status 12/12/16 21:25 Blood Peripheral Aerobic Blood Culture - Preliminary NO GROWTH IN 1 DAY Resulted 12/12/16 21:25 Blood Peripheral Anaerobic Blood Culture - Preliminary NO GROWTH IN 1 DAY Resulted 12/12/16 22:10 Wound Breast Gram Stain - Final Resulted 12/12/16 22:10 Wound Culture - Preliminary Staphylococcus Aureus Resulted Result Diagram: 12/13/1635 12/13/16734 Imaging Last Impressions Chest X-Ray 12/12/162120 Signed Impressions: Service Date/Time: Monday, December 12, 2016 21:34 - CONCLUSION: No acute disease. 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 Sepsis : fever, leukocytosis, bandemia - dc vanco zosyn - start cefaoline - fu blood clx - needs surgical treatment to source control with removal of infected bank worker Discussed Condition With RN @ b/s Niurka Greene MD Dec 13, 2016 18:46
[2016-12-13] MEDS ORDERED: ceFAZolin 2 GM PREMIX 50 ML IV SCH (20:00)
[2016-12-13] MEDS: DOCUSATE SODIUM 100 MG CAP PO SCH (21:00)
[2016-12-13] MEDS ORDERED: GENTAMICIN SULFATE 80 MG/2 ML VIAL ONE (21:42)
--- NOTE | 2016-12-13 22:09 | MB ---
cc: SHELLEYANIKALISA DATE OF CONSULTATION 12/13/16 REASON FOR CONSULTATION Right breast reconstruction infected warp picker with purulent drainage. HISTORY OF PRESENT ILLNESS This is a 56-year-old white female who is visit in [place] from [place], [place]. She was diagnosed with right breast cancer earlier in this year. Her surgery for bilateral mastectomy and immediate warp picker placement was sometime in September 2016. Approximately three weeks postoperative. she started noticing intermittent redness, swelling of the right breast. It was being seen by her plastic surgeon in [place]. She was being observed. She may have been placed on oral antibiotics. The details are not completely available right now. The patient visited [place] for the motorbike activities and yesterday started having drainage from the right breast, high fever and feeling sick. She was brought to the [facility] emergency room by her and has been admitted for slightly over 24 hours. The patient was originally referred to Dr. David Oneill as no plastic surgeon was available when she was admitted. Dr. Oneill just called me approximately an hour ago and has requested me to assume care for her. She receives her plastic surgical work done as a part of reconstruction. The patient did have a high temperature of 102 plus today in the afternoon, also her white count has gone to 20,000+ and it this increased since the admission. She has been placed on IV antibiotics with help of the infectious disease consult. The right breast has started draining profuse amount of liquid soaking the dressing through. PAST MEDICAL HISTORY Significant for the breast cancer on the right side, COPD. She is not diabetic. PAST SURGICAL HISTORY Gallbladder removal in 2013 MEDICATIONS Current medications Cymbalta at home. ALLERGIES None. SOCIAL HISTORY The patient has been a smoker for a very long time, but she has been smoking only occasionally for the past three years. No other major medical issues. PHYSICAL EXAMINATION The examination shows a 56-year-old white female in the surgical bed setting. She is comfortable not in distress, breathing normally and not appearing to be in any septic shock. She is afebrile to touch. She is alert, oriented and able to communicate well. The patient is able to also move around in the bed and ambulate out of the bed by herself. The general examination is grossly within acceptable range and as it is recorded on the chart. The local examination of the right breast shows a large opening on the lower half of the areola approximately one to 1 1/4 inch along the periphery and approximately three-quarters of an inch wide. There is a gauze packing that has been placed in the wound. When the room packing was removed, there was a profuse amount of yellow purulent discharge that came out. Approximately 25-30 mL was allowed to escape. No further packing was done. The area was gently cleaned and covered. There is as small raw area immediately under the wound as well. The upper half of the breast is slightly ___ compared to the left side. The purulent discharge is mostly odorless. There is no blood or hematoma. The fluid appeared to be more serous with a slight mucoid tendency. The left breast reconstruction seems to be otherwise stable and healing relatively well. The patient does have a nipple-areolar complex sparing mastectomy on the left with a mastopexy type of design. Her culture reports were reviewed showing MRSA growing. The sensitivity is not established yet. Again, the blood count has been 20.5 this afternoon. The current temperature recorded at 99. the highest temperature was slightly over 102 this afternoon. RECOMMENDATION The patient was advised that the prosthesis needs to be immediately removed. An operating room has been alerted and they are available tonight including anesthesia. The patient did have a small amount of solid food about an hour an a half to two hours ago which has been accepted in light of the need for surgery. The process of removal and debridement was explained in simple terms. The patient will be going back to [place] whenever she is allowed and she can resume care with her own plastic surgeon at that point. MD ARABELLA Brooks/ /9:22 PM /9:45 PM
[2016-12-13] MEDS ORDERED: DO NOT ADM ANY ANTICOAGULANT DRUGS PRN (22:30)
[2016-12-13] MEDS ORDERED: LACTATED RINGER'S 1000 ML INJ 1,000 ML IV SCH (23:00)
[2016-12-14] VITALS (8 sets, daily range): BP systolic 89–111; BP diastolic 51–64; PULSE 66–86; RESP 18–20; TEMP 97.7–98.4; O2SAT 96–99
[2016-12-14] MEDS: POVIDONE IODINE 10% SOLN 480 ML BTL SCH ×3 (05:00→21:00)
[2016-12-14] MEDS: ceFAZolin 2 GM PREMIX 50 ML IV SCH ×3 (06:07→22:05)
[2016-12-14 06:33] LABS: AUTOMATED NEUTROPHIL # 19.4 TH/MM3 (1.8-7.7); HEMATOCRIT 32.3 % (35.0-46.0); HEMO FLAGS DIFF FINAL; LYMPH % 3.9 % (9.0-44.0); LYMPHOCYTE # 0.8 TH/MM3 (1.0-4.8); MEAN CORPUSCULAR HEMOGLOBIN 27.7 PG (27.0-34.0); MEAN CORPUSCULAR HGB CONC 32.2 % (32.0-36.0); MONO % 2.9 % (0.0-8.0); NEUT % 93.2 % (16.0-70.0); PLATELET COUNT 191 TH/MM3 (150-450); RED BLOOD COUNT 3.76 MIL/MM3 (4.00-5.30); RED CELL DISTRIBUTION WIDTH 13.1 % (11.6-17.2); WHITE BLOOD COUNT 20.8 TH/MM3 (4.0-11.0)
--- NOTE | 2016-12-14 06:43 | MP ---
cc: [employer] DATE OF SURGERY 12/13/2016 PREOPERATIVE DIAGNOSIS Right breast abscess with tissue store sales consultant status post bilateral breast reconstruction. POSTOPERATIVE DIAGNOSIS Right breast abscess with tissue store sales consultant status post bilateral breast reconstruction. OPERATION Removal right breast tissue store sales consultant, debridement of the right breast pocket and thinning of the flap with tissue biopsy. SURGEON Dr. Wyatt ANESTHESIA General INDICATIONS This is a 56-year-old white female with right breast cancer, bilateral mastectomy and reconstruction with immediate tissue store sales consultant placement done in September 2016. She started having redness and swelling of the right breast intermittently approximately three weeks postop. The surgery design is an anchor design mastopexy type. Her vertical incision line in the lower areola area seems to have dehisced and there is a large amount of purulent drainage already draining out when the patient was first seen. The patient also has been febrile to 102 and blood count of 20,000+ WBCs. The removal of the store sales consultant and debridement was discussed with the patient and family and she is willing to proceed with the same. She understands that future reconstruction will have to be delayed until all the healing and infection is cleared. She may also have to decide about her left side down the line. There is a small scabbing noted at the T-junction lower part on the left breast, but otherwise the left breast seems to be healing normally. PROCEDURE The patient was brought to the operating room was given supine position. Anesthesia was started. The patient is already on IV antibiotic. Time-out was called and completed. A culture sample was taken from inside the breast pocket through the wide opening that is already present. The opening was enlarged and the breast flaps were opened along the horizontal incision lines both medially and laterally after completing the T portion. It was noted to contain additional 40-60 cc of purulent fluid that was suctioned out. The store sales consultant was removed. It was an intact [place] tissue store sales consultant. The cavity was inspected. The flap, particularly on the lateral aspect, seems to be fairly thick under the areola and the nipple-areolar complex. A portion of this flap seems to be calcified fatty necrosis type of tissue. This was thinned with scissors to make it even with the rest of the flap and remove the excess tissue and necrotic tissue as well. Since the right side is also the patient has cancer side, this tissue will be sent for pathology examination, even though it may not actually contain any cancer. Hemostasis was completed. The cavity was scrubbed for several minutes using Betadine scrub solution and the soft grafts and then it was irrigated out copiously with gentamicin containing saline solution. The cavity was packed with Betadine-soaked Ralf bandage after double-checking the hemostasis. The patient remained stable. Intraoperative blood loss less than 5 cc. No complications. MD ARABELLA Brooks/MACY /10:14 PM /6:28 AM
[2016-12-14 06:58] LABS: ALKALINE PHOSPHATASE 85 U/L (45-117); ALT (GPT) 52 U/L (10-53); ANION GAP 8 MEQ/L (5-15); AST (GOT) 25 U/L (15-37); BLOOD UREA NITROGEN 12 MG/DL (7-18); CHLORIDE 109 MEQ/L (98-107); GLOMERULAR FILTRATION RATE 55 ML/MIN (>89); POTASSIUM 3.6 MEQ/L (3.5-5.1); SODIUM (NA) 139 MEQ/L (136-145); TOTAL BILIRUBIN ADULT 0.8 MG/DL (0.2-1.0)
--- NOTE | 2016-12-14 07:35 | EKG ---
Date Performed: 12/12/2016 Time Performed: 21:51:37 PTAGE: 56 years EKG: SINUS TACHYCARDIA MINIMAL ST DEPRESSION CANNOT EXCLUDE ISCHEMIA ABNORMAL RHYTHM ECG NO PREVIOUS TRACING DOCTOR: Juancarlos Valencia Interpretating Date/Time 12/14/2016 07:33:37
--- NOTE | 2016-12-14 08:38 | HHI.PR ---
Subjective Remarks seen with at bedside, minimal pain low grade fever overnight, no chills here visiting from [place] Objective Vitals Vital Signs Date Time Temp Pulse Resp B/P (MAP) Pulse Ox O2 Delivery O2 Flow Rate FiO2 12/14/16 08:09 98.0 66 20 95/54 (68) 98 12/14/16 05:11 98.0 77 18 89/53 (65) 99 12/14/16 00:01 98.4 86 18 91/52 (65) 97 12/13/16 23:00 98.3 85 18 98/55 (69) 99 Nasal Cannula 2 12/13/16 22:45 86 18 99/56 (70) 99 Nasal Cannula 2 12/13/16 22:30 100 16 100/56 (71) 94 Nasal Cannula 3 12/13/16 22:30 86 12/13/16 22:18 98.7 102 16 102/58 (73) 93 Nasal Cannula 3 12/13/16 20:29 99.7 87 16 94/54 (67) 96 12/13/16 18:48 99.5 12/13/16 16:00 102.3 107 21 111/55 (73) 94 12/13/16 12:00 102.8 105 22 104/59 (74) 96 12/13/16 10:06 99.5 98 20 99/56 (70) 98 12/13/16 09:31 96 I/O 12/13/16 12/13/16 12/13/16 12/14/16 12/14/16 12/14/16 07:00 15:00 23:00 07:00 15:00 23:00 Intake Total 240 ml 500 ml Output Total 20 ml Balance 240 ml 480 ml Intake Oral 240 ml IV Total 100 ml Other 400 ml Output Estimated Blood Loss 20 ml # Voids 4 # Bowel Movements 0 Result Diagram: 12/14/1643 12/14/1643 Imaging Last Impressions Chest X-Ray 12/12/162120 Signed Impressions: Service Date/Time: Monday, December 12, 2016 21:34 - CONCLUSION: No acute disease. Abner Villagomez MD Objective Remarks awake and alert, NAD anicteric lungs clear regular rhythm right chest wall/breast- - open wound- edges clean, no necrotic tissue, no foul odor extremities no edema Procedures 12/13- removal of right breast cost manager, debridement A/P Problem List: (1) Wound infection ICD Code: T14.8XXA - Other injury of unspecified body region, initial encounter ; L08.9 - Local infection of the skin and subcutaneous tissue, unspecified Status: Acute (2) Sepsis ICD Code: A41.9 - Sepsis, unspecified organism Status: Acute Assessment and Plan 56 y/o with bilateral mastectomy and breast spacer placement surgery for breast cancer 2 months ago who presented to ED on 12/12/16 for evaluation of extensively draining non-healing right breast wound. Sepsis secondary Right breast wound infection/abscess S/P removal of breast cost manager and debridement 12/13- S aureus - T down, WBC 20,000. recheck CBC in am - Lactic acid normal at 1.6 - ID ff along with us- started on Cefazolin 2 gm IV a 8 - ff culture and sensitivity - dressing changes as ordered by Dr. Wyatt- Plastics ff Hypokalemia- corrected - potassium replaced - initial level 3.3 - ff BMP Depression - on Cymbalta- with good support DVT prophylaxis - Lovenox 40 mg subq q24h Incentive spirometry- hourly Increase activity- out of bed Problem Qualifiers (1) Sepsis: Qualified Codes: A41.9 - Sepsis, unspecified organism Parveen Decker MD Dec 14, 2016 08:38
[2016-12-14] MEDS: DOCUSATE SODIUM 100 MG CAP PO SCH ×2 (08:42→22:05)
[2016-12-14] MEDS: DULoxetine HCl DR 60 MG CAP PO SCH (08:42)
[2016-12-14] MEDS: ENOXAPARIN SODIUM 40 MG/0.4 ML SYRINGE SQ SCH (08:43)
[2016-12-14] MEDS: SODIUM CHLORIDE 0.9% FLUSH 10 ML FLUSH IV FLUSH SCH ×2 (09:08→22:05)
[2016-12-14] MEDS ORDERED: MORPHINE SULFATE 2 MG/ML INJ IV PUSH PRN (09:15)
[2016-12-14] MEDS ORDERED: PHARMACY ORDERED LAB ONE (09:45)
--- NOTE | 2016-12-14 15:54 | PD.PLAS.PN ---
Subjective Remarks Patient feeling much better, happy Afebrile Dressing was changed this am, no active bleeding reported Discussed the small open area on the left side T junction, patient is aware of it To keep the left side covered and protected. She can get in touch with her Plastic surgeon in [place] Will give her a copy of the micro to take it with her She may be able to get the wounds closed over a VIRIDIANA drain in a few days Also the path report sent last night may be ready by Mon or Sat - I will try to contact them when I receive it. They have a flight back to [place] Saturday am early OK to discharge from my standpoint tomorrow evening. Discussed future recon options - she can continue with her plastic surgeon. She also will need to continue with some form of ID coverage. Vital Signs Date Time Temp Pulse Resp B/P (MAP) Pulse Ox O2 Delivery O2 Flow Rate FiO2 12/14/16 13:15 98 12/14/16 12:29 98.0 66 20 92/51 (65) 98 12/14/16 09:36 78 12/14/16 08:09 98.0 66 20 95/54 (68) 98 12/14/16 05:11 98.0 77 18 89/53 (65) 99 12/14/16 00:01 98.4 86 18 91/52 (65) 97 12/13/16 23:00 98.3 85 18 98/55 (69) 99 Nasal Cannula 2 12/13/16 22:45 86 18 99/56 (70) 99 Nasal Cannula 2 12/13/16 22:30 100 16 100/56 (71) 94 Nasal Cannula 3 12/13/16 22:30 86 12/13/16 22:18 98.7 102 16 102/58 (73) 93 Nasal Cannula 3 12/13/16 20:29 99.7 87 16 94/54 (67) 96 12/13/16 18:48 99.5 12/13/16 16:00 102.3 107 21 111/55 (73) 94 I/O 12/13/16 12/13/16 12/13/16 12/14/16 12/14/16 12/14/16 07:00 15:00 23:00 07:00 15:00 23:00 Intake Total 240 ml 500 ml 1426 ml Output Total 20 ml Balance 240 ml 480 ml 1426 ml Intake Oral 240 ml IV Total 100 ml 1426 ml Other 400 ml Output Estimated Blood Loss 20 ml # Voids 4 # Bowel Movements 0 Laboratory Tests Test 12/14/16 05:43 White Blood Count 20.8 Red Blood Count 3.76 Hemoglobin 10.4 Hematocrit 32.3 Mean Corpuscular Volume 86.0 Mean Corpuscular Hemoglobin 27.7 Mean Corpuscular Hemoglobin Concent 32.2 Red Cell Distribution Width 13.1 Platelet Count 191 Mean Platelet Volume 8.6 Neutrophils (%) (Auto) 93.2 Lymphocytes (%) (Auto) 3.9 Monocytes (%) (Auto) 2.9 Eosinophils (%) (Auto) 0.0 Basophils (%) (Auto) 0.0 Neutrophils # (Auto) 19.4 Lymphocytes # (Auto) 0.8 Monocytes # (Auto) 0.6 Eosinophils # (Auto) 0.0 Basophils # (Auto) 0.0 CBC Comment DIFF FINAL Differential Comment Blood Urea Nitrogen 12 Creatinine 1.04 Random Glucose 147 Total Protein 6.0 Albumin 2.6 Calcium Level 8.2 Alkaline Phosphatase 85 Aspartate Amino Transf (AST/SGOT) 25 Alanine Aminotransferase (ALT/SGPT) 52 Total Bilirubin 0.8 Sodium Level 139 Potassium Level 3.6 Chloride Level 109 Carbon Dioxide Level 22.0 Anion Gap 8 Estimat Glomerular Filtration Rate 55 Date/Time Source Procedure Growth Status 12/12/16 21:25 Blood Peripheral Aerobic Blood Culture - Preliminary NO GROWTH IN 2 DAYS Resulted 12/12/16 21:25 Blood Peripheral Anaerobic Blood Culture - Preliminary NO GROWTH IN 2 DAYS Resulted 12/14/16 00:00 Abscess Breast Fungal Smear - Final NO FUNGAL ELEMENTS SEEN. Resulted 12/14/16 00:00 Abscess Breast Fungal Culture Pending Resulted Result Diagram: 12/14/16 0543 12/14/16 0543 Arik Wyatt MD Dec 14, 2016 15:54
[2016-12-15 00:45] VITALS: BP 95/53; PULSE 73; RESP 18; TEMP 97.8; O2SAT 96
[2016-12-15 04:13] VITALS: BP 150/97; PULSE 16; RESP 16; TEMP 98
[2016-12-15] MEDS: ceFAZolin 2 GM PREMIX 50 ML IV SCH ×2 (06:18→15:10)
[2016-12-15 06:50] VITALS: BP 90/56
[2016-12-15 07:08] LABS: AUTOMATED NEUTROPHIL # 12.7 TH/MM3 (1.8-7.7); BASOPHIL % 0.1 % (0.0-2.0); EOSINOPHIL # 0.1 TH/MM3 (0-0.4); HEMATOCRIT 27.6 % (35.0-46.0); HEMO FLAGS DIFF FINAL; LYMPH % 11.8 % (9.0-44.0); LYMPHOCYTE # 1.8 TH/MM3 (1.0-4.8); MEAN CELL VOLUME 84.7 FL (80.0-100.0); MEAN CORPUSCULAR HEMOGLOBIN 27.8 PG (27.0-34.0); MEAN CORPUSCULAR HGB CONC 32.8 % (32.0-36.0); MONO % 4.2 % (0.0-8.0); NEUT % 82.9 % (16.0-70.0); PLATELET COUNT 171 TH/MM3 (150-450); RED BLOOD COUNT 3.26 MIL/MM3 (4.00-5.30); RED CELL DISTRIBUTION WIDTH 13.4 % (11.6-17.2); WHITE BLOOD COUNT 15.3 TH/MM3 (4.0-11.0)
[2016-12-15 07:37] LABS: BICARBONATE 25.4 MEQ/L (21.0-32.0); POTASSIUM 3.4 MEQ/L (3.5-5.1)
[2016-12-15 08:00] VITALS: BP 100/58; PULSE 67; RESP 18; TEMP 98; O2SAT 98
[2016-12-15] MEDS: DOCUSATE SODIUM 100 MG CAP PO SCH (08:51)
[2016-12-15] MEDS: SODIUM CHLORIDE 0.9% FLUSH 10 ML FLUSH IV FLUSH SCH (08:52)
[2016-12-15] MEDS: DULoxetine HCl DR 60 MG CAP PO SCH (08:52)
[2016-12-15] MEDS: ENOXAPARIN SODIUM 40 MG/0.4 ML SYRINGE SQ SCH (08:52)
[2016-12-15 10:15] VITALS: O2SAT 98
--- NOTE | 2016-12-15 11:30 | HHI.PR ---
Subjective Remarks no complains no fever or chills Objective Vitals Vital Signs Date Time Temp Pulse Resp B/P (MAP) Pulse Ox O2 Delivery O2 Flow Rate FiO2 12/15/16 08:00 98.0 67 18 100/58 (72) 98 12/15/16 06:50 90/56 (67) 12/15/16 04:13 98.0 16 16 150/97 (114) 12/15/16 00:45 97.8 73 18 95/53 (67) 96 12/14/16 20:53 98.2 79 18 111/64 (80) 96 12/14/16 16:46 97.7 77 20 97/58 (71) 98 12/14/16 13:15 98 12/14/16 12:29 98.0 66 20 92/51 (65) 98 I/O 12/14/16 12/14/16 12/14/16 12/15/16 12/15/16 12/15/16 07:00 15:00 23:00 07:00 15:00 23:00 Intake Total 1426 ml 1010 ml 50 ml Balance 1426 ml 1010 ml 50 ml Intake Oral 960 ml IV Total 1426 ml 50 ml 50 ml # Voids 4 2 # Bowel Movements 0 Result Diagram: 12/15/1659912/15/16599 Imaging Last Impressions Chest X-Ray 12/12/162120 Signed Impressions: Service Date/Time: Monday, December 12, 2016 21:34 - CONCLUSION: No acute disease. Abner Villagomez MD Objective Remarks awake and alert, NAD anicteric lungs clear regular rhythm right chest wall/breast- - open wound- edges clean, no necrotic tissue, no foul odor extremities no edema Procedures 12/13- removal of right breast reimbursement spec, debridement A/P Problem List: (1) Wound infection ICD Code: T14.8XXA - Other injury of unspecified body region, initial encounter ; L08.9 - Local infection of the skin and subcutaneous tissue, unspecified Status: Acute (2) Sepsis ICD Code: A41.9 - Sepsis, unspecified organism Status: Acute Assessment and Plan 56 y/o with bilateral mastectomy and breast spacer placement surgery for breast cancer 2 months ago who presented to ED on 12/12/16 for evaluation of extensively draining non-healing right breast wound. Sepsis secondary Right breast wound infection/abscess S/P removal of breast reimbursement spec and debridement 12/13- MSSA - T down, WBC trended down . - Lactic acid normal at 1.6 - ID ff along with us- started on Cefazolin 2 gm IV a 8 - dressing changes as ordered by Dr. Wyatt- Plastics ff Hypokalemia-replace Depression - on Cymbalta- with good support DVT prophylaxis - Lovenox 40 mg subq q24h Incentive spirometry- hourly Increase activity- out of bed plan - patient flying out tomorrow at 6 am will d/w ID re: po antibiotics she has a ff up with her MD there Problem Qualifiers (1) Sepsis: Qualified Codes: A41.9 - Sepsis, unspecified organism Parveen Decker MD Dec 15, 2016 11:30
[2016-12-15 12:00] VITALS: BP 110/62; PULSE 60; RESP 18; TEMP 98.1; O2SAT 97
[2016-12-15] MEDS ORDERED: POTASSIUM CHLORIDE 10 MEQ CONTROLLED RELEASE TAB PO ONE (12:15)
[2016-12-15] MEDS ORDERED: CEPH-460 PO (13:49)
--- NOTE | 2016-12-15 13:53 | HHI.IDPN ---
Subjective Subjective Remarks doing good sp I+D , prosthesis removal pt noted marked improvement of the pain p sx MSSA in wound clx BC neg afebrile WBC down o/w feeling ok Allergies: Coded Allergies: No Known Allergies (Unverified , 12/12/16) Objective . Vital Signs Date Time Temp Pulse Resp B/P (MAP) Pulse Ox O2 Delivery O2 Flow Rate FiO2 12/15/16 12:00 98.1 60 18 110/62 (78) 97 12/15/16 10:15 98 21 12/15/16 08:00 98.0 67 18 100/58 (72) 98 12/15/16 06:50 90/56 (67) 12/15/16 04:13 98.0 16 16 150/97 (114) 12/15/16 00:45 97.8 73 18 95/53 (67) 96 12/14/16 20:53 98.2 79 18 111/64 (80) 96 12/14/16 16:46 97.7 77 20 97/58 (71) 98 . Laboratory Tests Test 12/14/16 05:43 12/15/16 06:00 White Blood Count 20.8 TH/MM3 15.3 TH/MM3 Red Blood Count 3.76 MIL/MM3 3.26 MIL/MM3 Hemoglobin 10.4 GM/DL 9.1 GM/DL Hematocrit 32.3 % 27.6 % Mean Corpuscular Volume 86.0 FL 84.7 FL Mean Corpuscular Hemoglobin 27.7 PG 27.8 PG Mean Corpuscular Hemoglobin Concent 32.2 % 32.8 % Red Cell Distribution Width 13.1 % 13.4 % Platelet Count 191 TH/MM3 171 TH/MM3 Mean Platelet Volume 8.6 FL 9.2 FL Neutrophils (%) (Auto) 93.2 % 82.9 % Lymphocytes (%) (Auto) 3.9 % 11.8 % Monocytes (%) (Auto) 2.9 % 4.2 % Eosinophils (%) (Auto) 0.0 % 1.0 % Basophils (%) (Auto) 0.0 % 0.1 % Neutrophils # (Auto) 19.4 TH/MM3 12.7 TH/MM3 Lymphocytes # (Auto) 0.8 TH/MM3 1.8 TH/MM3 Monocytes # (Auto) 0.6 TH/MM3 0.6 TH/MM3 Eosinophils # (Auto) 0.0 TH/MM3 0.1 TH/MM3 Basophils # (Auto) 0.0 TH/MM3 0.0 TH/MM3 CBC Comment DIFF FINAL DIFF FINAL Differential Comment Laboratory Tests Test 12/14/16 05:43 12/15/16 06:00 Blood Urea Nitrogen 12 MG/DL 14 MG/DL Creatinine 1.04 MG/DL 0.79 MG/DL Random Glucose 147 MG/DL 114 MG/DL Total Protein 6.0 GM/DL Albumin 2.6 GM/DL Calcium Level 8.2 MG/DL 8.2 MG/DL Alkaline Phosphatase 85 U/L Aspartate Amino Transf (AST/SGOT) 25 U/L Alanine Aminotransferase (ALT/SGPT) 52 U/L Total Bilirubin 0.8 MG/DL Sodium Level 139 MEQ/L 141 MEQ/L Potassium Level 3.6 MEQ/L 3.4 MEQ/L Chloride Level 109 MEQ/L 110 MEQ/L Carbon Dioxide Level 22.0 MEQ/L 25.4 MEQ/L Anion Gap 8 MEQ/L 6 MEQ/L Estimat Glomerular Filtration Rate 55 ML/MIN 76 ML/MIN Microbiology Date/Time Source Procedure Growth Status 12/12/16 21:25 Blood Peripheral Aerobic Blood Culture - Preliminary NO GROWTH IN 3 DAYS Resulted 12/12/16 21:25 Blood Peripheral Anaerobic Blood Culture - Preliminary NO GROWTH IN 3 DAYS Resulted 12/12/16 21:20 Blood Peripheral Aerobic Blood Culture - Preliminary NO GROWTH IN 3 DAYS Resulted 12/12/16 21:20 Blood Peripheral Anaerobic Blood Culture - Preliminary NO GROWTH IN 3 DAYS Resulted 12/14/16 00:00 Abscess Breast Fungal Smear - Final NO FUNGAL ELEMENTS SEEN. Resulted 12/14/16 00:00 Abscess Breast Fungal Culture Pending Resulted 12/14/16 00:00 Abscess Breast Acid Fast Stain - Final NO ACID FAST BACILLI SEEN Resulted 12/14/16 00:00 Abscess Breast Mycobacterial Culture Pending Resulted 12/14/16 00:00 Abscess Breast Gram Stain - Final Resulted 12/14/16 00:00 Wound Culture - Preliminary Staphylococcus Aureus Resulted 12/12/16 22:10 Wound Breast Gram Stain - Final Complete 12/12/16 22:10 Wound Culture - Final Staphylococcus Aureus Complete Physical Exam CONSTITUTIONAL/GENERAL: This is an adequately nourished patient, in no apparent distress. SKIN: No jaundice, rashes, or lesions. Skin temperature appropriate. Not diaphoretic. BREASTS: L breast with dressing in place min serosang staining RESPIRATORY/CHEST: unlabored respirations. NEUROLOGICAL: Awake and alert. non focal Assessment & Plan Remarks L breast wire bender hand infection, MSSA, sp I+D and removal of infeted wire bender hand ? Sepsis : fever, leukocytosis, bandemia: clinically resolved - dc pt home with f/u with her plastic surgeon in [place] - [facility] x 10 days, scrip written Discussed Condition With RN pt and @ b/s Niurka Greene MD Dec 15, 2016 13:53
--- NOTE | 2016-12-15 14:12 | HHI.DS ---
Discharge Summary Admission Date Dec 12, 2016 at 23:12 Discharge Date: Dec 15, 2016 Admitting Diagnosis sepsis, wound infection (1) Wound infection ICD Code: T14.8XXA - Other injury of unspecified body region, initial encounter ; L08.9 - Local infection of the skin and subcutaneous tissue, unspecified Status: Acute (2) Sepsis ICD Code: A41.9 - Sepsis, unspecified organism Status: Acute Procedures 12/13- removal of right breast aquatic facility manager, debridement Brief History - From Admission Written by Sarai Moralez, acting as scribe for Dr. Waller on 12/13/16 at 03:27. Plastic surgery following bilateral mastectomy 2 months ago (October 03, 2016) She has had a hole there on right breast/open wound for 7 weeks - had green, foul-odored drainage - plastic surgeon was notified multiple time and patient states she was told that it was "all fine"; wound got bigger and bigger; she was placed on antibiotics for it Patient was sitting on the toilet this morning and fluid started "pouring out of it" - discharge was "orangy" colored Has been off antibiotics for about 6 weeks Reports nausea with vomiting since arriving here at the hospital Denies fevers, shortness of breath, chest pain, vomiting, diarrhea, black or red stool, frequent urination. Traveled by plane here last Saturday; no unilateral extremity swelling or shortness of breath. Due to return home on Saturday. . CBC/BMP: 12/15/16 0600 12/15/16 0600 Significant Findings Laboratory Tests Test 12/12/16 21:25 12/12/16 21:30 12/13/16 07:35 12/14/16 05:43 White Blood Count 13.1 TH/MM3 (4.0-11.0) 20.5 TH/MM3 (4.0-11.0) 20.8 TH/MM3 (4.0-11.0) Neutrophils (%) (Auto) 84.8 % (16.0-70.0) 88.4 % (16.0-70.0) 93.2 % (16.0-70.0) Neutrophils # (Auto) 11.1 TH/MM3 (1.8-7.7) 18.2 TH/MM3 (1.8-7.7) 19.4 TH/MM3 (1.8-7.7) Creatinine 1.03 MG/DL (0.50-1.00) 1.04 MG/DL (0.50-1.00) Aspartate Amino Transf (AST/SGOT) 41 U/L (15-37) Potassium Level 3.3 MEQ/L (3.5-5.1) Estimat Glomerular Filtration Rate 56 ML/MIN (>89) 69 ML/MIN (>89) 55 ML/MIN (>89) Hemoglobin 11.5 GM/DL (11.6-15.3) 10.4 GM/DL (11.6-15.3) Lymphocytes (%) (Auto) 5.6 % (9.0-44.0) 3.9 % (9.0-44.0) Monocytes # (Auto) 1.2 TH/MM3 (0-0.9) Neutrophils % (Manual) 79 % (16-70) Band Neutrophils % 11 % (0-6) Lymphocytes % 6 % (9-44) Neutrophils # (Manual) 18.5 TH/MM3 (1.8-7.7) Calcium Level 8.3 MG/DL (8.5-10.1) 8.2 MG/DL (8.5-10.1) Chloride Level 109 MEQ/L (98-107) 109 MEQ/L (98-107) Red Blood Count 3.76 MIL/MM3 (4.00-5.30) Hematocrit 32.3 % (35.0-46.0) Lymphocytes # (Auto) 0.8 TH/MM3 (1.0-4.8) Random Glucose 147 MG/DL (74-106) Total Protein 6.0 GM/DL (6.4-8.2) Albumin 2.6 GM/DL (3.4-5.0) Test 12/15/16 06:00 White Blood Count 15.3 TH/MM3 (4.0-11.0) Red Blood Count 3.26 MIL/MM3 (4.00-5.30) Hemoglobin 9.1 GM/DL (11.6-15.3) Hematocrit 27.6 % (35.0-46.0) Neutrophils (%) (Auto) 82.9 % (16.0-70.0) Neutrophils # (Auto) 12.7 TH/MM3 (1.8-7.7) Random Glucose 114 MG/DL (74-106) Calcium Level 8.2 MG/DL (8.5-10.1) Potassium Level 3.4 MEQ/L (3.5-5.1) Chloride Level 110 MEQ/L (98-107) Estimat Glomerular Filtration Rate 76 ML/MIN (>89) Imaging Last Impressions Chest X-Ray 12/12/162120 Signed Impressions: Service Date/Time: Monday, December 12, 2016 21:34 - CONCLUSION: No acute disease. Abner Villagomez MD PE at Discharge awake and alert, NAD anicteric lungs clear regular rhythm right chest wall/breast- - open wound- edges clean, no necrotic tissue, no foul odor extremities no edema Pt update on day of discharge afebrile no complains wound- clean, no discharge Hospital Course 56 y/o with bilateral mastectomy and breast spacer placement surgery for breast cancer 2 months ago who presented to ED on 12/12/16 for evaluation of extensively draining non-healing right breast wound. Sepsis secondary Right breast wound infection/abscess S/P removal of breast aquatic facility manager and debridement 12/13- MSSA - T down, WBC trended down . - Lactic acid normal at 1.6 - ID ff along with us- started on Cefazolin 2 gm IV a 8 - Dc today- on Keflex 500 mg po q 6 x 10 days OP ff up with Plastic surgery in [place] Hypokalemia-replaced Depression - on Cymbalta- with good support DVT prophylaxis Incentive spirometry- hourly Increase activity- out of bed plan - patient flying out tomorrow at 6 am Pt Condition on Discharge: Stable Discharge Disposition: Discharge Home Discharge Time: <= 30 minutes Discharge Instructions DIET: Follow Instructions for: As Tolerated, No Restrictions Speech Therapy-Diet Recommends: Regular Activities you can perform: Weight Bearing as Luis Follow up Referrals: Plastic Surgery with own MD New Medications: Cephalexin (Keflex) 500 Mg Capsule 500 MG PO Q6H for Infection for 10 Days, #40 CAP 0 Refills Continued Medications: Duloxetine (Cymbalannamaria GONZALEZ) 60 Mg Capdr 60 MG PO DAILY, #30 CAP 0 Refills Parveen Decker MD Dec 15, 2016 14:12
[2016-12-15] MEDS: POVIDONE IODINE 10% SOLN 480 ML BTL SCH (15:09)
== END 2016-12-15 16:36 | disposition home or self-care (01) | DRG 907 ==
LOC: NEPE 19:08 → NEDA 23:12 → N05B 12-13 00:23
PROVIDERS: ADMIT Internal Medicine; ATTEND Internal Medicine
PROC: 0HBT0ZZ Excision of Right Breast, Open Approach (ICD-10-PCS; 2016-12-13)
PROC: 0HPT0NZ Removal of Tissue Expander from Right Breast, Open Approach (ICD-10-PCS; principal; 2016-12-13 21:34)
DX: T85.79XA Infection and inflammatory reaction due to other internal prosthetic devices, implants and grafts, initial encounter (principal); A41.9 Sepsis, unspecified organism; T81.31XA Disruption of external operation (surgical) wound, not elsewhere classified, initial encounter; C50.911 Malignant neoplasm of unspecified site of right female breast; B95.61 Methicillin susceptible Staphylococcus aureus infection as the cause of diseases classified elsewhere; F32.9 Major depressive disorder, single episode, unspecified; E78.5 Hyperlipidemia, unspecified; N61.1 Abscess of the breast and nipple; J44.9 Chronic obstructive pulmonary disease, unspecified; E87.6 Hypokalemia; Y83.1 Surgical operation with implant of artificial internal device as the cause of abnormal reaction of the patient, or of later complication, without mention of misadventure at the time of the procedure; Z72.0 Tobacco use
CPT/HCPCS: 71010; 80048; 80053; 81001; 83605; 83735; 85007; 85025; 85027; 85610; 85730; 86403; 87015; 87040; 87070; 87102; 87116; 87147; 87186; 87205; 87206; 88305; 88307; 93005; 96365; 96375; J0330; J0690; J1100; J1580; J1650; J2270; J2405; J2543; J3010; J3370; J7030; J7050; J7120